=== PATIENT | male | born 2000 | race Caucasian/White ===

== ENCOUNTER 2021-04-25 14:26 | Emergency (ER) | payer MEDICAID, OTHER ==
--- NOTE | 2021-04-25 15:53 | EDM.PDOC ---
ED HPI GENERAL MEDICAL PROBLEM - General Chief Complaint: Genitourinary Problem Stated Complaint: POSSIBLE UTI OR STD Time Seen by Provider: 04/25/21 15:53 Source of Information: Reports: Patient, RN History Limitations: Reports: No Limitations - History of Present Illness INITIAL COMMENTS - FREE TEXT/NARRATIVE: 20 year old male presenting with dysuria and penile burning for the past 1-2 days. States he thought symptoms would go away, but they have only worsened. He denies penile discharge or open skin lesions. Denies any redness. Denies testiculare pain or swelling. He does admit that he was sexually active with a new partner recently without protection. Denies history of UTI or STIs. No fever, chills, abdominal pain, nausea, vomiting, or diarrhea. - Related Data Allergies Allergy/AdvReac Type Severity Reaction Status Date / Time No Known Allergies Allergy Verified 04/25/21 15:45 Home Meds: Home Meds NK [No Known Home Meds] 04/25/21 [History] Past Medical History - Past Health History Medical/Surgical History: Denies Medical/Surgical History Musculoskeletal History: Reports: Fracture Social & Family History - Family History Family Medical History: No Pertinent Family History - Recreational Drug Use Recreational Drug Use: No ED ROS GENERAL - Review of Systems Review Of Systems: Comprehensive ROS is negative, except as noted in HPI. ED EXAM, RENAL/ - Physical Exam Exam: See Below Exam Limited By: No Limitations General Appearance: Alert, No Apparent Distress Head: Atraumatic, Normocephalic Neck: Full Range of Motion Respiratory/Chest: No Respiratory Distress, Lungs Clear, Normal Breath Sounds, No Accessory Muscle Use Cardiovascular: Regular Rate, Rhythm GI/Abdominal: Soft, Non-Tender (Male) Exam: No Hernia. No: Penile Lesions, Rash, Scrotal Swelling, Scrotum Tenderness (L), Scrotum Tenderness (R), Testicular Tenderness (L), Testicular Tenderness (R), Urethral Discharge Extremities: Normal Range of Motion Neurological: Alert, Oriented, CN II-XII Intact, Normal Cognition Psychiatric: Normal Affect, Normal Mood Skin Exam: Warm, Dry Course - Vital Signs Last Recorded V/S: Last Vital Signs Temp 98.1 F 04/25/21 15:45 Pulse 74 04/25/21 15:45 Resp 16 04/25/21 15:45 BP 134/77 04/25/21 15:45 Pulse Ox 99 07/23/21 15:45 - Orders/Labs/Meds Orders: Active Orders 24 hr Category Date Time Status CHLAMYDIA/GC AMPLIFICATION Stat Lab 04/25/21 15:51 Ordered Labs: Laboratory Tests 04/25/21 Range/Units 15:51 Urine Color Yellow (YELLOW) Urine Appearance Clear (CLEAR) Urine pH 6.5 (5.0-8.0) Ur Specific Ringle 1.020 (1.008-1.030) Urine Protein Negative (NEGATIVE) mg/dL Urine Glucose (UA) Negative (NEGATIVE) mg/dL Urine Ketones Negative (NEGATIVE) mg/dL Urine Occult Blood Negative (NEGATIVE) Urine Nitrite Negative (NEGATIVE) Urine Bilirubin Negative (NEGATIVE) Urine Urobilinogen 0.2 (0.2-1.0) EU/dL Ur Leukocyte Esterase Negative (NEGATIVE) Urine RBC Not seen (0-5) Urine WBC Not seen (0-5) Ur Epithelial Cells Not seen Amorphous Sediment Rare Urine Bacteria Not seen Urine Mucus Not seen Meds: Medications Discontinued Medications Generic Name Dose Route Start Last Admin Trade Name Moses PRN Reason Stop Dose Admin Azithromycin 1,000 mg 04/25/21 16:06 04/25/21 16:35 Azithromycin 250 Mg Tab PO 04/25/21 16:07 1,000 mg ONETIME ONE Administration Ceftriaxone Sodium 500 mg 04/25/21 16:04 04/25/21 16:35 Ceftriaxone 500 Mg Vial IM 04/25/21 16:05 500 mg ONETIME ONE Administration Lidocaine HCl Confirm 04/25/21 16:31 04/25/21 16:35 Lidocaine 1% 5 Ml Sdv Administered 04/25/21 16:32 5 ml Dose Administration 5 ml .ROUTE .STK-MED ONE Departure - Departure Time of Disposition: 16:42 Disposition: Home, Self-Care 01 Condition: Good Clinical Impression: Urethritis - Discharge Information Instructions: Urethritis, Adult Referrals: PCP,None [Primary Care Provider] - Forms: ED Department Discharge Additional Instructions: There is no evidence of a bladder infection today. Your symptoms are concerning for a sexually transmitted infection. The results of your gonorrhea and chlamydia tests won't be resulted for a few days. You have already been appropriately treated for gonorrhea and chlamydia while you were in the emergency department. No sexual intercourse for at least one week. Any sexual partners should also be treated. Wear condoms to prevent sexually transmitted infections. Sepsis Event Note (ED) - Evaluation Sepsis Screening Result: No Definite Risk - Focused Exam Vital Signs: Vital Signs Temp Pulse Resp BP Pulse Ox 04/25/21 15:45 98.1 F 74 16 134/77 99 04/25/21 15:40 98.1 F 74 16 134/77 99 - Problem List Review Problem List Initiated/Reviewed/Updated: Yes - My Orders Last 24 Hours: My Active Orders 04/25/21 15:51 CHLAMYDIA/GC AMPLIFICATION Stat - Assessment/Plan Last 24 Hours: My Active Orders 04/25/21 15:51 CHLAMYDIA/GC AMPLIFICATION Stat Assessment:: This is a 20 year old male presenting with dysuria and penile burning. There is no evidence of penile lesions, erythema, or discharge on exam. Urinalysis does not reveal any evidence of infection. There is no testicular or scrotal edema or tenderness appreciated. He has a benign abdominal exam. Given his history of recent new sexual partner without using condoms, GC/chlamydia urethritis is the most likely cause of his symptoms. Gonorrhea and chlamydia testing is pending. I will plan to treat him empirically with Ceftriaxone and Azithromycin in the ED. He was counseled that sexual partners should be tested/treated and he should refrain from sexual intercourse for the next 1 week. Discussed safe sex practice s, including condom use. He is stable for discharge home at this time.
[2021-04-25] MEDS ORDERED: cefTRIAXone 500 MG Vial IM ONE (16:04)
[2021-04-25] MEDS ORDERED: Azithromycin 250 MG Tab PO ONE (16:06)
[2021-04-30 19:11] LABS: CHLAMYDIA TRACHOMATIS, NAA Positive (Negative); NEISSERIA GONORRHOEAE, NAA Negative (Negative)
== END 2021-04-25 17:15 | disposition home or self-care (01) ==
LOC: JP.ED 14:26
DX: N34.2 Other urethritis (principal)
CPT/HCPCS: 81001; 87491; 87591; 96372; 99283; A9270; J0696